=== PATIENT | female | born 1960 | race African-American/Black ===

== ENCOUNTER 2018-12-23 23:47 | Emergency (ER) | payer SELFPAY ==
[~2018-12-23] VITALS: Ht 167.6 cm; Wt 49.3 kg
[2018-12-23 23:57] VITALS: BP 137/71
== END 2018-12-24 01:31 | disposition left against medical advice (07) ==
LOC: ER 12-24 01:14
DX: Z53.21 Procedure and treatment not carried out due to patient leaving prior to being seen by health care provider (principal)